=== PATIENT | male | born 1935 | race Caucasian/White ===

== ENCOUNTER 2020-10-04 11:52 | Emergency (ER) | payer OTHER ==
[2020-10-04 12:30] LABS: #Basophils 0.1 10x3/uL (0.0-0.2); #Eosinphils 0.1 10x3/uL (0.0-0.5); #Monocytes 0.5 10x3/uL (0.0-1.1); #Neutrophils 5.9 10x3/uL (1.5-8.4); %Basophils 0.7 % (0.0-2.0); %Eosinophils 1.6 % (0.0-6.0); %Lymphocytes 12.6 % (18.0-47.0); %Monocytes 7.1 % (0.0-10.0); %Neutrophils 77.5 % (40.0-75.0); Hemoglobin 12.1 g/dL (13.5-17.5); Mean Corpuscular HGB CONC 32.3 g/dL (32.0-36.0); Mean Corpuscular Hemoglobin 30.4 pg (27.0-33.0); Mean Corpuscular Volume 94.2 fl (81.2-95.1); Mean Platelet Volume 9.6 fl (7.4-10.4); Platelet Count 286 10x3/uL (150-450); RBC Distribution Width 14.3 % (11.5-14.5); Red Blood Cell (RBC) Count 3.98 10x6/uL (4.32-5.72); White Blood Cell (WBC) Count 7.6 10x3/uL (3.5-10.5)
[2020-10-04 12:43] LABS: ALT (SGPT) 15 U/L (8-55); AST (SGOT) 21 U/L (5-34); Albumin 3.7 g/dL (3.4-4.8); Alkaline Phosphatase 95 U/L (40-110); Anion Gap 12 mmol/L (10-20); BUN (Urea Nitrogen) 17 mg/dL (8.4-25.7); Bilirubin, Total 1.5 mg/dL (0.2-1.2); Calc. Creatinine Clearance 0 mL/min (70-130); Calcium 8.9 mg/dL (7.8-10.44); Carbon Dioxide 25 mmol/L (23-31); Chloride 104 mmol/L (98-107); Globulin 2.7 g/dL (2.4-3.5); Glucose 96 mg/dL (83-110); Potassium 4.5 mmol/L (3.5-5.1); Protein, Total 6.4 g/dL (5.8-8.1); Sodium 136 mmol/L (136-145)
[2020-10-04] MEDS ORDERED: Morphine 4 MG/ML VIAL ONE ×2 (13:19→14:00)
[2020-10-04] MEDS ORDERED: Labetalol HCl 100 MG/20 ML VIAL ONE (13:37)
[2020-10-04] MEDS ORDERED: HUMAN PROTHROMBIN COMPLX IV SCH (13:45)
[2020-10-04] MEDS ORDERED: ADMIXTURE FEE IV SCH (13:45)
[2020-10-04 15:36] LABS: SARS-CoV-2 NAA Rapid Test Not Detected (NotDetected)
== END 2020-10-04 15:29 | disposition short-term general hospital (02) ==
LOC: CSHERS 11:52
DX: S06.5X9A Traumatic subdural hemorrhage with loss of consciousness of unspecified duration, initial encounter (principal); E78.5 Hyperlipidemia, unspecified; I10 Essential (primary) hypertension; V49.9XXA Car occupant (driver) (passenger) injured in unspecified traffic accident, initial encounter
CPT/HCPCS: 70450; 71260; 72125; 74177; 80053; 85025; 96374; 96375; 96376; C9132; G0390; J2270; U0002

== ENCOUNTER 2021-04-07 04:33 | Emergency (ER) | payer OTHER ==
[2021-04-07] MEDS ORDERED: Morphine 4 MG/ML VIAL ONE (05:03)
[2021-04-07] MEDS ORDERED: Ondansetron PF 4 MG/2 ML Vial ONE (05:03)
[2021-04-07 09:07] LABS: #Monocytes 1.6 10x3/uL (0.0-1.1); %Basophils 0.2 % (0.0-2.0); %Eosinophils 0.1 % (0.0-6.0); %Lymphocytes 4.3 % (18.0-47.0); %Neutrophils 85.8 % (40.0-75.0); Hemoglobin 10.3 g/dL (13.5-17.5); Mean Corpuscular HGB CONC 33.2 g/dL (32.0-36.0); Mean Corpuscular Hemoglobin 30.3 pg (27.0-33.0); Mean Corpuscular Volume 91.2 fl (81.2-95.1); Mean Platelet Volume 9.4 fl (7.4-10.4); Platelet Count 269 10x3/uL (150-450); RBC Distribution Width 14.1 % (11.5-14.5); White Blood Cell (WBC) Count 17.5 10x3/uL (3.5-10.5)
[2021-04-07 09:15] LABS: PTT 26.7 sec (22.0-33.0); Prothrombin Time 10.7 sec (9.5-12.1)
[2021-04-07 09:22] LABS: ALT (SGPT) 13 U/L (8-55); AST (SGOT) 20 U/L (5-34); Albumin 3.3 g/dL (3.4-4.8); Alkaline Phosphatase 103 U/L (40-110); Anion Gap 14 mmol/L (10-20); BUN (Urea Nitrogen) 24 mg/dL (8.4-25.7); Bilirubin, Total 1.9 mg/dL (0.2-1.2); CK (CPK) 198 U/L (30-200); Calc. Creatinine Clearance 0 mL/min (70-130); Calcium 8.5 mg/dL (7.8-10.44); Carbon Dioxide 23 mmol/L (23-31); Chloride 101 mmol/L (98-107); Globulin 1.8 g/dL (2.4-3.5); Glucose 123 mg/dL (83-110); Potassium 4.9 mmol/L (3.5-5.1); Protein, Total 5.1 g/dL (5.8-8.1); Sodium 133 mmol/L (136-145)
[2021-04-07 09:44] LABS: Bilirubin Neg (Negative); Blood, Urine 150 (Negative); Clarity Clear (Clear); Glucose, Urine (Dipstick) Normal (Negative); Ketone, Urine Negative (Negative); Leukocyte 25 (Negative); Nitrite Negative (Negative); Protein, Urine (Dipstick) 30 mg/dl (Neg-Trace)
[2021-04-07 09:55] LABS: Bacteria/HPF 1+ HPF (None Seen); Squamous Epithelial 0-3 HPF (0-3)
[2021-04-07 10:21] LABS: SARS-CoV-2 NAA Rapid Test Not Detected (NotDetected)
== END 2021-04-07 10:00 | disposition short-term general hospital (02) ==
LOC: CSHERS 04:33
DX: S72.141A Displaced intertrochanteric fracture of right femur, initial encounter for closed fracture (principal); M97.01XA Periprosthetic fracture around internal prosthetic right hip joint, initial encounter; Z20.822 Contact with and (suspected) exposure to COVID-19; I25.2 Old myocardial infarction; I25.10 Atherosclerotic heart disease of native coronary artery without angina pectoris; I10 Essential (primary) hypertension; E78.5 Hyperlipidemia, unspecified; Z79.899 Other long term (current) drug therapy; Z79.82 Long term (current) use of aspirin; W19.XXXA Unspecified fall, initial encounter
CPT/HCPCS: 51702; 70450; 71045; 72125; 72192; 80053; 81003; 81015; 82550; 83605; 85025; 85610; 85730; 87077; 87086; 87186; 93005; 96374; 96375; J2270; J2405; U0002